=== PATIENT | male | born 1955 | race Caucasian/White ===

== ENCOUNTER 2016-08-19 23:00 | Emergency (ER) | payer SELFPAY ==
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
== END 2016-08-20 02:00 | disposition expired ==
LOC: ER 23:00 → EDBD 23:00 → ER 08-20 02:00
PROC: 0BH17EZ Insertion of Endotracheal Airway into Trachea, Via Natural or Artificial Opening (ICD-10-PCS; principal; 2016-08-19)
DX: S01.312A Laceration without foreign body of left ear, initial encounter (principal); S21.112A Laceration without foreign body of left front wall of thorax without penetration into thoracic cavity, initial encounter; S31.119A Laceration without foreign body of abdominal wall, unspecified quadrant without penetration into peritoneal cavity, initial encounter; W26.9XXA Contact with unspecified sharp object(s), initial encounter